=== PATIENT | female | born 1985 ===

== ENCOUNTER 2020-12-15 13:41 | Emergency (ER) | payer OTHER ==
[~2020-12-15] VITALS: Ht 160 cm; Wt 59.0 kg
== END 2020-12-15 18:06 | disposition home or self-care (01) ==
LOC: ER 13:41
DX: O20.0 Threatened abortion (principal)

== ENCOUNTER 2021-03-22 10:05 | Outpatient (CLI) | payer OTHER | END 2021-03-22 10:52 | disposition home or self-care (01) | LOC: NST 10:05 | PROVIDERS: ATTEND Obstetrics & Gynecology Maternal & Fetal Medicine | DX: O30.002 Twin pregnancy, unspecified number of placenta and unspecified number of amniotic sacs, second trimester (principal) ==

== ENCOUNTER 2021-04-10 13:23 | Outpatient (CLI) | payer OTHER | END 2021-04-10 14:02 | disposition home or self-care (01) | LOC: NST 13:23 | PROVIDERS: ATTEND Obstetrics & Gynecology Maternal & Fetal Medicine | DX: Z34.82 Encounter for supervision of other normal pregnancy, second trimester (principal) ==

== ENCOUNTER 2021-05-08 13:06 | Outpatient (CLI) | payer OTHER | END 2021-05-08 13:36 | disposition home or self-care (01) | LOC: NST 13:06 | PROVIDERS: ATTEND Obstetrics & Gynecology Maternal & Fetal Medicine | DX: Z34.83 Encounter for supervision of other normal pregnancy, third trimester (principal) ==

== ENCOUNTER 2021-05-22 10:45 | Outpatient (CLI) | payer OTHER | END 2021-05-22 11:51 | disposition home or self-care (01) | LOC: NST 10:45 | PROVIDERS: ATTEND Obstetrics & Gynecology Maternal & Fetal Medicine | DX: Z34.83 Encounter for supervision of other normal pregnancy, third trimester (principal) ==

== ENCOUNTER 2021-06-04 12:44 | Outpatient (CLI) | payer OTHER | END 2021-06-04 13:33 | disposition home or self-care (01) | LOC: NST 12:44 | PROVIDERS: ATTEND Obstetrics & Gynecology Maternal & Fetal Medicine | DX: Z34.83 Encounter for supervision of other normal pregnancy, third trimester (principal) ==

== ENCOUNTER 2021-06-15 13:04 | Inpatient (IN) | payer OTHER ==
[~2021-06-15] VITALS: Ht 160 cm; Wt 68.5 kg
[2021-06-15] MEDS ORDERED: CHILDREN'S ASPI81 MG PO (13:51)
[2021-06-15] MEDS ORDERED: IRON325 MG PO (13:52)
[2021-06-15] MEDS ORDERED: ADALAT CC30 MG PO (13:54)
[2021-06-15] MEDS ORDERED: PRENATAL TABLE1 EAC3 PO (13:55)
== END 2021-06-18 10:41 | disposition home or self-care (01) | DRG 833 ==
LOC: LDR 13:04 → OB/GYN 06-17 08:09
PROVIDERS: ADMIT Obstetrics & Gynecology Maternal & Fetal Medicine; ATTEND Obstetrics & Gynecology Maternal & Fetal Medicine
PROC: 4A1HXFZ Monitoring of Products of Conception, Cardiac Rhythm, External Approach (ICD-10-PCS; principal; 2021-06-15)
DX: O60.03 Preterm labor without delivery, third trimester (principal); O30.003 Twin pregnancy, unspecified number of placenta and unspecified number of amniotic sacs, third trimester; O26.853 Spotting complicating pregnancy, third trimester; O34.211 Maternal care for low transverse scar from previous cesarean delivery; Z3A.33 33 weeks gestation of pregnancy

== ENCOUNTER 2021-06-21 08:50 | Outpatient (CLI) | payer OTHER ==
[~2021-06-21 08:50] MED LIST: ADALAT CC30 MG PO; CHILDREN'S ASPI81 MG PO; IRON325 MG PO; PRENATAL TABLE1 EAC3 PO
== END 2021-06-21 11:25 | disposition home or self-care (01) ==
LOC: NST 08:50
PROVIDERS: ATTEND Obstetrics & Gynecology Maternal & Fetal Medicine
DX: O30.003 Twin pregnancy, unspecified number of placenta and unspecified number of amniotic sacs, third trimester (principal)

== ENCOUNTER 2021-06-30 02:32 | Inpatient (IN) | payer OTHER ==
[~2021-06-30] VITALS: Ht 160 cm; Wt 2.3 kg
[2021-06-30] MEDS ORDERED: NIFEDIPINE20 MG PO (03:07)
== END 2021-07-03 13:01 | disposition home or self-care (01) | DRG 783 ==
LOC: LDR 02:32 → OB/GYN 02:32
PROVIDERS: ADMIT Obstetrics & Gynecology; ATTEND Obstetrics & Gynecology
PROC: 0UB70ZZ Excision of Bilateral Fallopian Tubes, Open Approach (ICD-10-PCS; 2021-06-30)
PROC: 4A1HXFZ Monitoring of Products of Conception, Cardiac Rhythm, External Approach (ICD-10-PCS; 2021-06-30)
PROC: 10D00Z1 Extraction of Products of Conception, Low, Open Approach (ICD-10-PCS; principal; 2021-06-30 07:00)
DX: O42.013 Preterm premature rupture of membranes, onset of labor within 24 hours of rupture, third trimester (principal); O60.14X2 Preterm labor third trimester with preterm delivery third trimester, fetus 2; O60.14X1 Preterm labor third trimester with preterm delivery third trimester, fetus 1; O30.043 Twin pregnancy, dichorionic/diamniotic, third trimester; O34.211 Maternal care for low transverse scar from previous cesarean delivery; Z30.2 Encounter for sterilization; Z3A.35 35 weeks gestation of pregnancy; Z37.2 Twins, both liveborn

== ENCOUNTER 2021-07-20 22:50 | Emergency (ER) | payer OTHER ==
[~2021-07-20] VITALS: Ht 160 cm; Wt 59.0 kg
[~2021-07-20 22:50] MED LIST changes: +NIFEDIPINE20 MG PO
== END 2021-07-21 00:44 | disposition home or self-care (01) ==
LOC: ER 22:50
DX: M54.50 Low back pain, unspecified (principal); Z3A.00 Weeks of gestation of pregnancy not specified; O26.899 Other specified pregnancy related conditions, unspecified trimester